=== PATIENT | male | born 1980 | race Two or more races ===

== ENCOUNTER 2020-07-18 14:56 | Emergency (ER) | payer MEDICAID ==
[~2020-07-18] VITALS: Ht 182.9 cm; Wt 82.0 kg
[2020-07-18] MEDS ORDERED: ACETAMINOPHEN WITH CODEINE 300/30MG TABLET PO STA (15:22)
[2020-07-18] MEDS ORDERED: KETOROLAC 60MG/2ML VIAL IM STA (15:22)
[2020-07-18 16:03] VITALS: BP 126/90
== END 2020-07-18 16:04 | disposition home or self-care (01) ==
LOC: ER 14:56
DX: S39.012A Strain of muscle, fascia and tendon of lower back, initial encounter (principal); Y99.0 Civilian activity done for income or pay; Y93.89 Activity, other specified; Y92.89 Other specified places as the place of occurrence of the external cause
CPT/HCPCS: 72100; 96372; 99283; J1885

== ENCOUNTER 2020-09-12 17:05 | Emergency (ER) | payer MEDICAID ==
[~2020-09-12] VITALS: Ht 182.9 cm; Wt 82.0 kg
[2020-09-12] MEDS ORDERED: KETOROLAC 30MG/ML VIAL IV STA (17:22)
[2020-09-12 17:49] LABS: BASOPHILS % 0.6 % (0.0-2.0); EOSINOPHILS % 1.5 % (0.0-5.0); HEMOGLOBIN. 14.9 g/dL (14.0-18.0); LYMPHOCYTES % 34.6 % (20.0-50.0); MEAN CORPUSCULAR VOLUME 92.5 fL (80.0-94.0); MEAN PLATELET VOLUME 9.7 fl (7.4-10.4); MONOCYTES % 6.1 % (2.0-8.0); NEUTROPHILS % 57.2 % (40.0-76.0); PLATELET 187 x1000/uL (130-400); RED BLOOD CELL COUNT 4.65 mill/uL (4.7-6.1); RED CELL DISTRIBUTION WIDTH 12.7 % (11.6-14.6)
[2020-09-12 17:56] LABS: CHLORIDE 103 mEq/L (98-107)
[2020-09-12 18:00] LABS: ETHANOL BLOOD < 10 mg/dL
[2020-09-12 18:50] VITALS: BP 128/77
[2020-09-12 18:57] LABS: *AMPHETAMINES SCREEN URINE NEGATIVE (NEGATIVE); *BARBITURATES SCREEN URINE NEGATIVE (NEGATIVE); *BENZODIAZEPINES SCREEN URINE NEGATIVE (NEGATIVE); *COCAINE SCREEN URINE NEGATIVE (NEGATIVE); METHADONE URINE SCREEN NEGATIVE (NEGATIVE); OPIATES URINE SCREEN NEGATIVE (NEGATIVE)
[2020-09-12 18:59] LABS: CANNABINOID URINE SCREEN PRESUMTIVE POSITIVE (NEGATIVE); PHENCYCLIDINE URINE SCREEN NEGATIVE (NEGATIVE)
== END 2020-09-12 19:09 | disposition home or self-care (01) ==
LOC: ER 17:05
DX: R07.89 Other chest pain (principal); F12.10 Cannabis abuse, uncomplicated; Z98.890 Other specified postprocedural states
CPT/HCPCS: 36415; 71045; 80053; 80305; 80320; 83690; 83880; 84484; 85025; 93005; 96374; 99285; J1885; G0480

== ENCOUNTER 2021-01-19 17:12 | Emergency (ER) | payer MEDICAID ==
[~2021-01-19] VITALS: Ht 182.9 cm; Wt 90.0 kg
[2021-01-19 17:15] VITALS: BP 129/72
[2021-01-19] MEDS ORDERED: CLOT15CR27 TP ×3 (17:31→17:38)
== END 2021-01-19 17:58 | disposition home or self-care (01) ==
LOC: ER 17:12
DX: B35.6 Tinea cruris (principal); F12.10 Cannabis abuse, uncomplicated
CPT/HCPCS: 99282

== ENCOUNTER 2021-09-23 13:51 | Emergency (ER) | payer MEDICAID ==
[~2021-09-23] VITALS: Ht 182.9 cm; Wt 87.7 kg
[~2021-09-23 13:51] MED LIST: CLOT15CR27 TP
[2021-09-23] MEDS ORDERED: ALBU6.7H15 INH (15:08)
[2021-09-23 16:32] VITALS: BP 125/72
== END 2021-09-23 16:32 | disposition home or self-care (01) ==
LOC: ER 14:27
DX: R07.89 Other chest pain (principal); R06.00 Dyspnea, unspecified; Z20.822 Contact with and (suspected) exposure to COVID-19; F31.9 Bipolar disorder, unspecified; F12.10 Cannabis abuse, uncomplicated
CPT/HCPCS: 36415; 71045; 84484; 87426; 93005; 99285